=== PATIENT | male | born 1970 | race Caucasian/White ===

== ENCOUNTER → 2020-04-15 | Outpatient (CLI) | payer OTHER ==
--- NOTE | 2020-04-17 13:41 | US ---
EXAM DESCRIPTION: Soft Tissue,Extremity: ULTRASOUND. CLINICAL HISTORY: 49 years Male PAIN IN LEFT ARM. Patient fell "pop" in left elbow 2 weeks ago. Difficulty with rotation and strength decreased. COMPARISON: None Available. TECHNIQUE: Transcutaneous scanning: Pulido-scale and Doppler modes. FINDINGS: Scanning the proximal right elbow were mass palpated. Heterogeneous abnormal signal just above the elbow anteriorly. Minimal soft tissue edema. Question of abnormal signal in the musculature of tendinous junction of the biceps or brachioradialis. IMPRESSION: Possible muscle or tendon injury anterior distal upper arm. Corresponds to region of palpable mass. Consider MRI scan of the elbow in the region of soft tissue mass. Electronically signed by: Lc Brenner MD 04/17/2020 1:40 PM [facility]
== END ==
LOC: US 14:26
PROVIDERS: ATTEND Physician Assistant
DX: M79.602 Pain in left arm (principal); R22.32 Localized swelling, mass and lump, left upper limb